=== PATIENT | male | born 1995 | race Two or more races ===

== ENCOUNTER 2021-06-29 03:38 | Inpatient (IN) | payer MEDICAID, OTHER ==
[~2021-06-29] VITALS: Ht 175.3 cm; Wt 85.7 kg
--- NOTE | 2021-06-29 03:54 | NUR ---
PATIENT BIBRA 860 C/O LEFT ARM/ELBOW SWELLING, PAIN X 1 WEEK, DRAINAGE X 4 DAYS. PATIENT IS A/O X 4, RR EVEN AND UNLABORED, NO SOB NOTED. PATIENT CONNECTED TO CARDIAC AND POX MONITOR.
[2021-06-29] MEDS ORDERED: VANCOMYCIN 1 GM in IV D5W 250 ML IV ONE (04:00)
[2021-06-29] MEDS ORDERED: CEFEPIME 1 GM in IV D5W 50 ML IV ONE (04:00)
[2021-06-29] MEDS ORDERED: IV NS 0.9% 1,000 ML BAG IV ONE (04:00)
--- NOTE | 2021-06-29 04:00 | NUR ---
MOVE SHEET SUBMITTED
--- NOTE | 2021-06-29 04:15 | NUR ---
20G IV LINE ESTABLISHED AT [facility] PATENT AND INTACT. BLOOD DRAWN AND SENT TO LAB.
[2021-06-29] MEDS ORDERED: CEFEPIME 1 GM VIAL ONE (04:18)
--- NOTE | 2021-06-29 04:23 | NUR ---
PT TRANSPORTED TO CT VIA [facility]
[2021-06-29 04:30] LABS: BASOPHILS % (AUTO) 0.5 % (0.0-2.0); EOSINOPHILS % (AUTO) 3.2 % (0.0-6.0); HEMATOCRIT 36 % (39-51); HEMOGLOBIN 12.3 g/dL (13.5-17.5); LYMPHOCYTES % (AUTO) 11.5 % (20.0-44.0); MEAN CORPUSCULAR HGB CONC 34 g/dl (31.0-36.0); MEAN CORPUSCULAR VOLUME 84 fL (80-96); MONOCYTES # (AUTO) 0.8 K/uL (0.1-1.30); MONOCYTES % (AUTO) 9.6 % (2.0-12.0); NEUTROPHILS # (AUTO) 6.5 K/uL (1.8-8.9); NEUTROPHILS % (AUTO) 75.2 % (43.0-81.0); PLATELET COUNT (AUTO) 356 K/uL (150-450); RED BLOOD CELL COUNT(AUTO) 4.33 MIL/uL (4.5-6.0); WHITE BLOOD COUNT (AUTO) 8.7 K/uL (4.3-11.0)
[2021-06-29] MEDS ORDERED: IOHEXOL-300 100 ML VIAL IV ONE (04:31)
[2021-06-29] MEDS ORDERED: IV NS 0.9% 250 ML IV ONE (04:31)
[2021-06-29] MEDS ORDERED: CT SWABBABLE VALVE TRANS SET 1 EA INFUS.SET MC ONE (04:31)
--- NOTE | 2021-06-29 04:55 | NUR ---
PT RETURNED FROM CT SCAN [facility]IA [facility]
--- NOTE | 2021-06-29 05:00 | NUR ---
COVID SWAB AND WOUND CULTURE COLLECTED AND SENT TO LAB
[2021-06-29 05:06] LABS: CALCIUM, SERUM 7.8 mg/dL (8.5-10.1); CREATININE 0.8 mg/dL (0.6-1.3); POTASSIUM 3.7 mmol/L (3.5-5.1)
--- NOTE | 2021-06-29 05:07 | NUR ---
MRSA SWAB COLLECTED AND SENT TO LAB. PATIENT'S BELONGINGS LIST DONE.
[2021-06-29] MEDS ORDERED: VANCOMYCIN 1 GM VIAL ONE (05:14)
[2021-06-29 05:19] LABS: ALBUMIN 2.4 g/dL (3.4-5.0); BILIRUBIN,DIRECT 0.1 mg/dL (0.0-0.2); BILIRUBIN,TOTAL 0.2 mg/dL (0.2-1.0); TOTAL PROTEIN, SERUM 6.1 g/dL (6.4-8.2)
--- NOTE | 2021-06-29 05:46 | NUR ---
DERRICK AGUILERA TALKING TO SURGEON OVER THE PHONE
--- NOTE | 2021-06-29 06:05 | NUR ---
EPIC PANEL PAGED
--- NOTE | 2021-06-29 06:54 | NUR ---
SYED PAGED FOR IMAGE READ
--- NOTE | 2021-06-29 07:13 | NUR ---
EPIC PANEL PAGED
--- NOTE | 2021-06-29 07:22 | NUR ---
DR. DIEZ SPEAKING TO DR. PATEL VIA PHONE CALL
[2021-06-29] MEDS ORDERED: IBUP-23 PO (07:35)
--- NOTE | 2021-06-29 12:45 | NUR ---
PT SLEEPING IN BED COMFORTABLY, EASILY AROUSABLE. WILL CONTINUE TO MONITOR.
--- NOTE | 2021-06-29 14:05 | NUR ---
PT CONTINUES TO BE SLEEPING IN BED, EASILY AROUSABLE, NEEDS MET, WILL CONTINUE TO MONITOR
--- NOTE | 2021-06-29 16:11 | NUR ---
BED GIVEN 315-2
--- NOTE | 2021-06-29 16:19 | NUR ---
REPORT GIVEN TO ARVIND JORGE FOR LISA
[2021-06-29] MEDS ORDERED: Z GUARD REMEDY 4 OZ OINT TP PRN (16:30)
[2021-06-29] MEDS ORDERED: ACETAMINOPHEN 325 MG TABLET PO PRN (16:30)
[2021-06-29] MEDS ORDERED: ONDANSETRON HCL/PF 4 MG/2 ML VIAL IVP PRN (16:30)
--- NOTE | 2021-06-29 16:30 | NUR ---
MS ADMIT FROM ER AFTER REPORT RECEIVED. PATIENT ORIENTED TO UNIT, ROOM, BED, AND UNIT POLICIES REGARDING PATIENT CARE AND VISITING HOURS. PATIENT WEIGHED BY BEDSCALE AND ENCOURAGED TO CALL IF THEY NEED SOMETHING. ALL QUESTIONS AND CONCERNS ADDRESSED, PATIENT VERBALIZED UNDERSTANDING.
[2021-06-29] MEDS: ENOXAPARIN SODIUM 40 MG/0.4 ML DISP.SYRIN SQ SCH (17:23)
[2021-06-29 18:00] VITALS: BP 126/74
[2021-06-29] MEDS ORDERED: VANCOMYCIN 1.25 GM in IV D5W 250 ML IV SCH (18:00)
[2021-06-29] MEDS: PIPERACILLIN /TAZOBACTAM 3.375 G in IV D5W 50 ML IV SCH ×2 (19:29→23:52)
[2021-06-29] MEDS: VANCOMYCIN 1.25 GM in IV D5W 250 ML IV SCH (19:39)
[2021-06-29 20:00] VITALS: BP 119/54
--- NOTE | 2021-06-29 21:02 | NUR ---
Patient is A&Ox4, resting comfortably in bed. No signs of distress. Only c/o minimal pain when arm is touched. Pictures taken put in chart and wrapped with abd pad and kerlix. Patient educated about antibiotics and to keep movement of L arm to a minimum. Will get arm sling. RFA #22G intact and patent. Will continue to monitor. Addendum: 06/29/21 at 2110 by ISABELL LESTER RN time 1999*
[2021-06-30] MEDS: PIPERACILLIN /TAZOBACTAM 3.375 G in IV D5W 50 ML IV SCH ×4 (05:02→23:13)
[2021-06-30] MEDS: VANCOMYCIN 1.25 GM in IV D5W 250 ML IV SCH ×2 (05:47→18:28)
[2021-06-30] MEDS: HYDROCODONE/APAP 10/325MG TABLET PO PRN (06:05)
--- NOTE | 2021-06-30 06:10 | NUR ---
RN CLOSING NOTES Patient is A&Ox4. Awake and alert. Tolerating IV ABX well no adverse side effects. Arm kept elevated in bed. Pt. doesn't like wearing sling while in bed but wears oob, educated on importance of keeping arm still and elevated. Awake and watching TV no signs of distress. However, pt. did c/o 8/ pain to [place] given as per order. Arm wrapped with abd pads and kerlix. c/d/i.
[2021-06-30 07:06] LABS: ALBUMIN 2.1 g/dL (3.4-5.0); BILIRUBIN,TOTAL 0.4 mg/dL (0.2-1.0); CALCIUM, SERUM 8.4 mg/dL (8.5-10.1); CREATININE 0.8 mg/dL (0.6-1.3); MAGNESIUM 2.4 mg/dL (1.8-2.4); PHOSPHORUS 3.9 mg/dL (2.5-4.9); POTASSIUM 3.9 mmol/L (3.5-5.1); TOTAL PROTEIN, SERUM 5.7 g/dL (6.4-8.2)
[2021-06-30 07:52] LABS: BASOPHILS % (AUTO) 0.6 % (0.0-2.0); EOSINOPHILS % (AUTO) 6.7 % (0.0-6.0); HEMATOCRIT 36 % (39-51); HEMOGLOBIN 12.2 g/dL (13.5-17.5); LYMPHOCYTES # (AUTO) 1.5 K/uL (0.8-4.8); LYMPHOCYTES % (AUTO) 28.4 % (20.0-44.0); MEAN CORPUSCULAR HGB CONC 34 g/dl (31.0-36.0); MEAN CORPUSCULAR VOLUME 85 fL (80-96); MONOCYTES # (AUTO) 0.5 K/uL (0.1-1.30); MONOCYTES % (AUTO) 9.4 % (2.0-12.0); NEUTROPHILS % (AUTO) 54.9 % (43.0-81.0); PLATELET COUNT (AUTO) 349 K/uL (150-450); RED BLOOD CELL COUNT(AUTO) 4.29 MIL/uL (4.5-6.0); WHITE BLOOD COUNT (AUTO) 5.4 K/uL (4.3-11.0)
--- NOTE | 2021-06-30 07:59 | NUR ---
MS RN OPENING NOTES RECEIVED PATIENT IN BED, AWAKE, A/O X4. PATIENT ON ROOM AIR; BREATHING EVEN AND UNLABORED. NO COMPLAINS OF PAIN AT THIS TIME. IV ACCESS ON RFA G #22 PRESENT AND INTACT. LEFT ARM IN DRESSING C/D/I. SAFETY PRECAUTIONS IN PLACE; BED IN LOW POSITION AND LOCKED, RAILS UP X2, CALL LIGHT WITHIN REACH. WILL CONTINUE TO MONITOR PATIENT.
--- NOTE | 2021-06-30 08:15 | NUR ---
WOUND CARE CONSULT: PT EATING AT THIS TIME AND HAS DRESSING TO LEFT ELBOW. REVIEWED ADMISSION PHOTO WHICH INDICATES LEFT ELBOW OPEN WOUND WITH SEROSANGUINOUS DRAINAGE, PRESENT ON ADMISSION. DR CEVALLOS CALLED FOR SURGICAL CONSULT. IN AGREEMENT WITH PLAN OF CARE.
[2021-06-30 08:24] VITALS: BP 106/60
--- NOTE | 2021-06-30 15:54 | NUR ---
"SS Consult: SS Consult requested for homelessness. The pt. is a 25 -year old male patient who admitted to [facility] due to left arm swelling & drainage. Upon SS consult, the pt. is Alert & Oriented x 4 and makes poor eye contact. Pt. is drowsy and kept eyes closed throughout interview. The pt. appears disheveled. Pt.s speech is clear and has dysphoric mood and affect. SW explored pt.s living situation. Patient denies experiencing homelessness; However, pt. could not provide address of residence. SW offered mcc placement upon discharge and pt. is agreeable. SW explored pt.s drug & ETOH use. Pt. denies drug or alcohol use. SW explored pt.s mental health Hx. Pt. denies Hx. of mental illness. Pt. denies current SI/HI and denies visual hallucinations. Per pt. he is ambulatory & independent with all his ADLs. SW explored pt.s support system. Pt. states he has no support system. Plan: Per EMR, CM is working on SNF placement for pt. SW provided pt. with homeless resources and pt. refused them. Pt. signed homeless waiver and it was placed in the chart.SW notified pt.'s nurse about anticipated discharge plan. No discharge order at [facility] time. SW to be notified by nursing when pt. is medically cleared and to provide TAP card and mcc referral. SW will be available as needed. The pt. was given homeless resources and he accepted them. Pt. signed homeless waiver and it was placed in the pt.'s chart. Year-round shelters: [facility] [place] [address] [place] [address] ; [facility] [place] [address] [place] [address]; [facility] [id number] [facility] [address] Winter Shelters: SPA 2 | [facility] Brandi: Leila melchor the [place] Address: Confidential (call for location ) Population Served: Coed # of Beds: 57 SPA 4 | [facility] Provider: Home at Last Address: [address] [place] [address] # of Beds: 49 Population Served: Coed SPA 6 | [facility] Provider: Home at Last [facility]: [address] [facility] [address] # of Beds: 49 Population Served: Coed [facility] Provider: Shonda PECK Address: [address] [facility] [address] # of Beds: 20 Population Served: Women ARMANDO Facility Provider: Home at Last Address: [address] [facility] [address] # of Beds: 30 Population Served: Women SPA 8 | [facility] Provider: Kathi of [place] Address: [address] [facility] [address] # of Beds: 65 Population Served: Coed Hygiene: [facility] [address] [place] [facility] ; [place] [facility] [address] [facility] ; [facility] [address] [facility] . Food Resources: [place] [facility] at [facility]- [address] [facility]; Meet Each Need with Dignity ([facility]) [address] [facility]; [facility] Food Pantry [address] [facility]; [facility] [address] [facility]. Mental Health resources provided: [facility] [address] [place] [address] ; [facility] [address], [place] [address] ; [facility] [address] [place] [address] ; [facility] [address] [place], [place] [phone] Healthcare Clinics: [facility] [address] [facility], [address] [place]. [place] ; [facility] [address] [facility] [address] [place] [address]; [facility] [place] [address] [place] [address] [phone] Counseling--Outpatient [facility] [address] [facility], [place] [address] (Specializes in in-depth psychotherapy for emotional distress: anxiety, depression, interpersonal conflicts, life transitions, childhood abuse) [facility] [address] [place] [address] (Assist with solving problem marital difficulties, separation & divorce, aging parents, & grief, chronic & terminal illness) [facility] [address] [place] [address] (Deal with loss & grief, anxiety, marital difficulties) Homebound/Mental Health Services [address] [facility] [address] [place] [address] (Provide in-home mental services to people who are incapable of leaving their homes) Organization for Needs of the Elderly Senior Service/Resource Center [address] [place] [address] [facility] [address] [facility] [place] [address] PSYCHIATRIC OUTPATIENT SERVICES [facility] Partial Hospitalization and Intensive Outpatient Program (Managed Care and [place] Only)[address] [address] [facility] [phone] [facility] Partial Hospitalization and Outpatient [id number] [facility] [address] [place], [place] [phone] [facility] Mental Health Center [id number] [facility] [address] [place], [place] [phone] [facility] Partial Hospitalization and Outpatient Prwedao[address] [facility] FarrahGRIMES, [phone] Substance Abuse resources provided included: [facility] Substance Abuse Self-Helpline (SASH) ; CRI -HELP [address] [facility]. [place]. [place] [address] ; [facility] [address] [facility] [address] ; [facility] [address] [place] [phone] ; [facility] [address] [facility] [address] ; [facility] [address] [facility] [phone] ; [facility] [address] [facility] [phone] ; [facility] Substance Abuse Helpline([facility] ; [facility] ; [facility]; [facility]; [facility] [place]; [facility] Mumtaz Yan; [facility] [place]; [facility] [place]; [facility]; [facility] [place]; Alcoholics Anonymous -SFV; Fz-Erth-Aycdtsl ; Marijuana Anonymous -SFV; Narcotics Anonymous www.na.org;"
[2021-06-30 16:30] VITALS: BP 118/70
[2021-06-30] MEDS: ENOXAPARIN SODIUM 40 MG/0.4 ML DISP.SYRIN SQ SCH (16:38)
--- NOTE | 2021-06-30 19:18 | NUR ---
RN opening notes Received Pt from morning nurse. Pt is laying in bed comfortably watching TV. Pt is alert and orientedX4. On room air. No SOB. No S/S of distress noted. IV site at RFA# 22 is clean,intact and flushes well. L elbow dressing clean, intact and dry. Safety precautions is maintained. Bed at low position, brakes locked, side rails upX2 and call light is within reach. Will continue to monitor.
--- NOTE | 2021-06-30 19:19 | NUR ---
MS RN CLOSING NOTES PATIENT IN BED, AWAKE, A/O X4. PATIENT ON ROOM AIR; BREATHING EVEN AND UNLABORED. NO COMPLAINS OF PAIN DURING THE DAY. IV ACCESS ON RFA G #22 PRESENT AND INTACT. LEFT ARM IN DRESSING C/D/I. ALL NEEDS ATTENDED DURING THE DAY. SAFETY PRECAUTIONS IN PLACE; BED IN LOW POSITION AND LOCKED, RAILS UP X2, CALL LIGHT WITHIN REACH. WILL ENDORSE TO INSULATION FOREMAN NURSE FOR LISA.
[2021-06-30 20:00] VITALS: BP 99/51
[2021-06-30 22:00] VITALS: BP 130/70
[2021-07-01] MEDS: VANCOMYCIN 1 GM in IV D5W 250ml IV SCH ×3 (00:03→16:04)
[2021-07-01] MEDS: PIPERACILLIN /TAZOBACTAM 3.375 G in IV D5W 50 ML IV SCH ×4 (05:08→23:32)
[2021-07-01 06:26] LABS: BASOPHILS % (AUTO) 0.8 % (0.0-2.0); EOSINOPHILS % (AUTO) 6.5 % (0.0-6.0); HEMATOCRIT 39 % (39-51); HEMOGLOBIN 12.9 g/dL (13.5-17.5); LYMPHOCYTES # (AUTO) 1.4 K/uL (0.8-4.8); MEAN CORPUSCULAR HGB CONC 33 g/dl (31.0-36.0); MEAN CORPUSCULAR VOLUME 85 fL (80-96); MONOCYTES # (AUTO) 0.5 K/uL (0.1-1.30); MONOCYTES % (AUTO) 7.7 % (2.0-12.0); NEUTROPHILS # (AUTO) 3.7 K/uL (1.8-8.9); PLATELET COUNT (AUTO) 416 K/uL (150-450); RED BLOOD CELL COUNT(AUTO) 4.61 MIL/uL (4.5-6.0)
--- NOTE | 2021-07-01 06:30 | NUR ---
RN closing notes Pt is resting in bed comfortably. Pt is alert and orientedX4. On room air. No SOB. No S/S of distress noted. IV site at RFA# 22 is clean,intact and flushes well. L elbow with a sling, dressing clean, intact and dry. Wound care provided as ordered. Routine meds were given as ordered. Kept Pt clean, dry and comfortable. Safety precautions is maintained. Bed at low position, brakes locked, side rails upX2 and call light is within reach. Will endorse to am nurse for LISA.
--- NOTE | 2021-07-01 07:30 | NUR ---
RN opening notes Received Pt in bed. Pt is laying in bed comfortably watching TV. Pt is alert and orientedX4. On room air. No SOB. No S/S of distress noted. IV site at RFA# 22 is clean,intact and flushes well. L elbow dressing clean, intact and dry. Safety precautions is maintained. Bed at low position, brakes locked, side rails upX2 and call light is within reach. Will continue to monitor.
[2021-07-01 07:40] LABS: ALBUMIN 2.3 g/dL (3.4-5.0); BILIRUBIN,TOTAL 0.2 mg/dL (0.2-1.0); CALCIUM, SERUM 8.8 mg/dL (8.5-10.1); CREATININE 0.8 mg/dL (0.6-1.3); MAGNESIUM 2.4 mg/dL (1.8-2.4); PHOSPHORUS 4.3 mg/dL (2.5-4.9); POTASSIUM 4.8 mmol/L (3.5-5.1); TOTAL PROTEIN, SERUM 6.1 g/dL (6.4-8.2)
[2021-07-01 08:00] VITALS: BP 120/51
[2021-07-01] MEDS: HYDROCODONE/APAP 10/325MG TABLET PO PRN ×3 (08:07→23:50)
[2021-07-01 11:31] LABS: NEUTROPHILS % (MANUAL) 45 (42-76)
[2021-07-01 11:32] LABS: EOSINOPHILS % (MANUAL) 9 % (0-4); LYMPHOCYTES % (MANUAL) 29 % (16-48); MONOCYTES % (MANUAL) 9 % (0-11.0); REACTIVE LYMPHOCYTES 8 % (0-0)
[2021-07-01 16:00] VITALS: BP 110/62
[2021-07-01] MEDS: ENOXAPARIN SODIUM 40 MG/0.4 ML DISP.SYRIN SQ SCH (16:28)
--- NOTE | 2021-07-01 19:30 | NUR ---
RN closing notes Pt is laying in bed comfortably watching TV. Pt is alert and orientedX4. On room air. No SOB. No S/S of distress noted. IV site at RFA# 22 is clean,intact and flushes well. L elbow dressing clean, intact and dry. All due meds given as ordered. Safety precautions is maintained. Bed at low position, brakes locked, side rails upX2 and call light is within reach. will be npo starting midnight for tomorrow surgery. Will endorse for bruno.
[2021-07-01 20:00] VITALS: BP_SYST 115; BP_SYST 118; BP_DIAS 59
[2021-07-02] VITALS (9 sets, daily range): BP systolic 113–140; BP diastolic 49–74
[2021-07-02] MEDS: VANCOMYCIN 1 GM in IV D5W 250ml IV SCH ×3 (00:08→21:02)
--- NOTE | 2021-07-02 05:10 | NUR ---
cLOSING nOTES: ALERT AND ORIENTATED x4 IN [employer] DRESSING LEFT ELBOW CDI ELEVATED ON A PILLOW MEDICATED X1 FOR PAIN LEFT ELBOW WITH NORCO 10/3.375 1 TABLET AND EFFECTIVE FOR PAIN RELIEF. AMBULATES TO HE BATHROOM AND STEADY ON HIS LEGS NPO AT MIDNIGHT D/T SCHEDULED FOR I AND D THIS AM AT 9AM.
[2021-07-02] MEDS: PIPERACILLIN /TAZOBACTAM 3.375 G in IV D5W 50 ML IV SCH ×3 (05:57→17:32)
[2021-07-02 06:22] LABS: BASOPHILS % (AUTO) 0.5 % (0.0-2.0); EOSINOPHILS % (AUTO) 3.5 % (0.0-6.0); HEMATOCRIT 40 % (39-51); HEMOGLOBIN 13.3 g/dL (13.5-17.5); LYMPHOCYTES # (AUTO) 1.2 K/uL (0.8-4.8); LYMPHOCYTES % (AUTO) 13.9 % (20.0-44.0); MEAN CORPUSCULAR HGB CONC 33 g/dl (31.0-36.0); MEAN CORPUSCULAR VOLUME 85 fL (80-96); MONOCYTES # (AUTO) 0.6 K/uL (0.1-1.30); MONOCYTES % (AUTO) 6.7 % (2.0-12.0); NEUTROPHILS # (AUTO) 6.6 K/uL (1.8-8.9); NEUTROPHILS % (AUTO) 75.4 % (43.0-81.0); PLATELET COUNT (AUTO) 407 K/uL (150-450); RED BLOOD CELL COUNT(AUTO) 4.73 MIL/uL (4.5-6.0); WHITE BLOOD COUNT (AUTO) 8.8 K/uL (4.3-11.0)
[2021-07-02 06:43] LABS: ALBUMIN 2.4 g/dL (3.4-5.0); BILIRUBIN,TOTAL 0.2 mg/dL (0.2-1.0); CALCIUM, SERUM 8.7 mg/dL (8.5-10.1); CREATININE 1.2 mg/dL (0.6-1.3); MAGNESIUM 2.4 mg/dL (1.8-2.4); PHOSPHORUS 5.4 mg/dL (2.5-4.9); POTASSIUM 4.2 mmol/L (3.5-5.1); TOTAL PROTEIN, SERUM 6.1 g/dL (6.4-8.2)
[2021-07-02] MEDS ORDERED: POLYMYXIN B SULFATE 500,000 UNITS ONE (06:48)
[2021-07-02] MEDS ORDERED: LIDOCAINE 1% INJ 50 ML MDV IJ ONE (06:49)
[2021-07-02] MEDS ORDERED: BUPIVACAINE 0.5 % PF 150 MG/30 ML VIAL ONE (06:49)
[2021-07-02] MEDS ORDERED: ANESTHESIA TRAY IN PYXIS 1 EA TRAY MC ONE (06:49)
--- NOTE | 2021-07-02 07:00 | NUR ---
MS RN OPENING NOTES PATIENT LAYING IN BED AROUSABLE BY NAME TO A/O X 4. TOLERATING ROOM AIR WELL WITH NO SOB OR DISTRESS NOTED. R FA 22 G SALINE LOCK PATENT AND FLUSHES WELL. L ELBOW DRESSING CLEAN, INTACT AND DRY. SAFETY MEASURES IN PLACE: BED IN LOWEST LOCKED POSITION, SIDE RAILS UP X 2, CALL LIGHT WITHIN REACH. WILL CONTINUE TO MONITOR.
--- NOTE | 2021-07-02 07:47 | NUR ---
MS RN NOTES SPOKE WITH ERNST IN PHARMACY REGARDING PATIENT'S ELEVATED VANCOMYCIN TROUGH OF 22 LAST NIGHT AT 2244. ERNST ADVISED HE IS CHANGING THE DOSAGE OF VANCO TO 1 G AND IT CAN BE GIVEN AT THE REGULAR SCHEDULED TIME.
[2021-07-02] MEDS ORDERED: MIDAZOLAM HCL 2 MG/2ML VIAL ONE (08:44)
[2021-07-02] MEDS ORDERED: HYDROMORPHONE INJ 2 MG/ML DISP.SYRIN ONE (08:44)
[2021-07-02] MEDS ORDERED: HYDROMORPHONE 1 MG/1 ML DISP.SYRIN ONE (10:10)
--- NOTE | 2021-07-02 10:51 | NUR ---
MS RN NOTES PATIENT RETURNED TO UNIT AT 1050 ACCOMPANIED BY OR NURSE MEL. VITALS TAKEN S/P LEFT ELBOW INCISION AND DRAINAGE BY MD MASTERS. DRESSING ON LEFT ELBOW CLEAN/DRY/INTACT, WRAPPED WITH JOE BANDAGE. NEW ORDERS GIVEN PER MD: NON WEIGHT BEARING ON LEFT UPPER EXTREMITY, ELEVATE LEFT UPPER EXTREMITY, CONTINUE PRE-OP MEDICATIONS. WILL CONTINUE TO MONITOR VITAL SIGNS. ICE PACK ON LEFT ELBOW. WILL INPUT MD INSTRUCTIONS ORDERED.
[2021-07-02 16:25] LABS: LYMPHOCYTES % (MANUAL) 11 % (16-48); METAMYELOCYTES % 2 % (0-0); MONOCYTES % (MANUAL) 7 % (0-11.0); MYELOCYTES % 2 % (0-0); NEUTROPHILS % (MANUAL) 78 (42-76)
[2021-07-02] MEDS: ENOXAPARIN SODIUM 40 MG/0.4 ML DISP.SYRIN SQ SCH (16:57)
--- NOTE | 2021-07-02 18:51 | NUR ---
MS RN CLOSING NOTES PATIENT IN BED A/O X 4, TOLERATING WELL ON ROOM AIR WITH NO SOB OR DISTRESS NOTED. R FA SALINE LOCK 20 G PATENT AND FLUSHING WELL. DRESSING ON LEFT ELBOW CLEAN/DRY/INTACT. SAFETY MEASURES IN PLACE: BED IN LOWEST LOCKED POSITION, SIDE RAILS UP X 2, CALL LIGHT WITHIN REACH. WILL ENDORSE TO ROAD CUTTER FOR LISA.
--- NOTE | 2021-07-02 19:34 | NUR ---
MS RN OPENING NOTE PATIENT RECEIVED ASLEEP IN BED. A/OX4. NO S/S OF DISTRESS, BREATHING SYMMETRICAL ON ROOM AIR. RFA #22 INTACT AND PATENT. SAFETY MEASURES IN PLACE: BED AT LOWEST POSITION, RAILS UP X2, CALL RANDALL WITHIN REACH. WILL CONTINUE TO FOLLOW PATIENT.
--- NOTE | 2021-07-02 20:55 | NUR ---
RN NOTE SPOKE W/ SUDARSHAN IN PHARMACY RE: PATIENT'S LAST VANCO TROUGH. LAST TROUGH WAS 22 ON 07/01/21. SUDARSHAN STATED VANCO HAD ALREADY BEEN ADJUSTED WAS OKAY TO GIVE TO PATIENT. WILL ADMINISTER ABX AND CONTINUE MONITORING PATIENT.
[2021-07-03] MEDS: PIPERACILLIN /TAZOBACTAM 3.375 G in IV D5W 50 ML IV SCH ×3 (00:04→09:18)
[2021-07-03] MEDS: HYDROCODONE/APAP 10/325MG TABLET PO PRN (05:41)
--- NOTE | 2021-07-03 06:38 | NUR ---
MS RN CLOSING NOTE PATIENT ASLEEP IN BED. A/OX4. NO S/S OF DISTRESS, BREATHING SYMMETRICAL ON ROOM AIR. RFA SL #22 INTACT AND PATENT. PAIN WAS NOTED EARLIER, BUT RESOLVED W/ MD ORDER OF BRIAN. SAFETY MEASURES IN PLACE: BED AT LOWEST POSITION, RAILS UP X2, CALL RANDALL WITHIN REACH. WILL ENDORSE TO FOLLOWING SHIFT FOR LISA.
[2021-07-03 06:52] LABS: CALCIUM, SERUM 8.2 mg/dL (8.5-10.1); POTASSIUM 3.7 mmol/L (3.5-5.1)
--- NOTE | 2021-07-03 07:20 | NUR ---
MS RN OPENING NOTES RECEIVED PATIENT IN BED A/O X 4, TOLERATING WELL ON ROOM AIR WITH NO SOB OR DISTRESS NOTED. WITH RIGHT FOREARM IV ACCESS G22 ON SALINE LOCK, PATENT AND INTACT. DRESSING ON LEFT ELBOW COVERED WITH ELASTIC BANDAGE, CLEAN/DRY/INTACT. SAFETY MEASURES IN PLACE: BED IN LOWEST LOCKED POSITION, SIDE RAILS UP X 2, CALL LIGHT WITHIN REACH. WILL CONTINUE TO MONITOR PATIENT.
[2021-07-03 09:06] VITALS: BP 109/59
[2021-07-03] MEDS: VANCOMYCIN 1 GM in IV D5W 250ml IV SCH (09:19)
--- NOTE | 2021-07-03 12:30 | NUR ---
RN NOTE PATIENT SEEN BY DR. GUADALUPE WITH ORDER TO DISCHARGE PATIENT. HEALTH TEACHING DONE REGARDING DISCHARGE AND DISCHARGE ORDERS. VERBALIZED UNDERSTANDING. WILL CONTINUE TO MONITOR PATIENT.
--- NOTE | 2021-07-03 14:00 | NUR ---
RN NOTE PATIENT DISCHARGED ORDERED. PATIENT ALERT AND ORIENTED AND CHOOSE TO GO BACK TO THE STREETS. ORAL MEDICATIONS PROVIDED FOR BY THE DIETARY TECH. PATIENT REFUSED TO HAVE PICTURE TAKEN AND DRESSING CHANGED DONE PRIOR TO HIS DISCHARGE. HE SAID HE WILL DO IT HIMSELF. MATERIALS PROVIDED. IV ACCESS REMOVED AND COVERED WITH DRY DRESSING. TOLERATED WELL. HEALTH TEACHINGS DONE ORDERED AND VERBALIZED UNDERSTANDING AND APPRECIATION. PATIENT ACCOMPANIED BY NURSE TO LOBBY FOR DISCHARGE. IN STABLE CONDITION. ENDORSED ACCORDINGLY.
== END 2021-07-03 14:45 | disposition home or self-care (01) | DRG 952 ==
LOC: ER 03:40 → TRANSITION 07:31 → MED 16:12
PROVIDERS: ADMIT Nurse Practitioner Acute Care
PROC: 0M940ZZ Drainage of Left Elbow Bursa and Ligament, Open Approach (ICD-10-PCS; principal; 2021-07-02)
PROC: 0JBH0ZZ Excision of Left Lower Arm Subcutaneous Tissue and Fascia, Open Approach (ICD-10-PCS; 2021-07-02)
DX: L03.114 Cellulitis of left upper limb (principal); I82.612 Acute embolism and thrombosis of superficial veins of left upper extremity; L02.414 Cutaneous abscess of left upper limb; Z20.822 Contact with and (suspected) exposure to COVID-19; S50.312A Abrasion of left elbow, initial encounter; Y92.9 Unspecified place or not applicable; Y08.89XA Assault by other specified means, initial encounter; M71.122 Other infective bursitis, left elbow; Z59.00 Homelessness unspecified; F15.90 Other stimulant use, unspecified, uncomplicated; F12.90 Cannabis use, unspecified, uncomplicated
CPT/HCPCS: 36415; 73201-TC; 80048-TC; 80053-TC; 80061-TC; 80076-TC; 80202-TC; 83540-TC; 83605-TC; 83735-TC; 84100-TC; 85025-TC; 85652-TC; 85730-TC; 86140-TC; 87040-TC; 87070-TC; 87075-TC; 87081-TC; 87086-TC; 87186-TC; 93971-TC; A4217; A4565; A6253; A6403; C9803; G0378; J0692; J1100; J1170; J1650; J1885; J2250; J2405; J2543; J2704; J3370; J3490; J7030; J7050; J7060; Q9967